=== PATIENT | female | born 1960 | race Caucasian/White ===

== ENCOUNTER 2023-09-07 11:25 | Outpatient (REF) | payer OTHER, SELFPAY ==
[2023-09-07 14:41] LABS: MANUAL DIFF FLAG NO
[2023-09-07 14:55] LABS: Basophils Absolute Auto 0.1 X10*3/uL (0.0-0.2); Basophils Percent Auto 0.6 % (0-2); Hematocrit 41.9 % (37.0-47.0); Hemoglobin 13.4 g/dl (12.0-16.0); Imm Gran Abs Auto 0.05 X10*3/uL (0.00-0.03); Imm Gran Pct Auto 0.6 % (0.0-0.4); Lymphocytes Absolute Auto 2.6 X10*3/uL (1.2-4.9); Lymphocytes Percent Auto 28.6 % (20-40); Mean Corpuscular Hemoglobin 28.2 pg (27.0-33.0); Mean Corpuscular Volume 88.2 fL (80.0-98.0); Mean Platelet Volume 10.6 fL (9.4-12.3); Monocytes Absolute Auto 0.6 X10*3/uL (0.1-1.2); Monocytes Percent Auto 6.1 % (2-11); Neutrophils Absolute Auto 5.8 x10*3/uL (2.0-8.3); Neutrophils Percent Auto 64.1 % (45-73); Platelet Count 296 X10*3/uL (160-400); Red Blood Count 4.75 X10*6/uL (4.20-5.50); Red Cell Distribution Width 13.2 % (11.0-16.0)
[2023-09-07 15:43] LABS: Alanine Aminotransferase 23 U/L (0-31); Albumin Level 4.3 g/dL (3.5-5.0); Alkaline Phosphatase 104 U/L (39-117); Anion Gap 13 (12-20); Aspartate Amino Transferase 26 U/L (5-31); Bilirubin Total 0.3 mg/dL (0.0-1.0); Blood Urea Nitrogen 10 mg/dL (9-16); Calcium 9.8 mg/dL (8.4-10.2); Carbon Dioxide 25 mmol/L (22-29); Chloride 107 mmol/L (96-108); Cholesterol 191 mg/dL (<200); Estimated Glomerular Filt Rate > 60; Glucose Random 111 mg/dL (60-115); HDL Cholesterol 38 mg/dL (>40); LDL Cholesterol Calculated 85 mg/dL (<100); Sodium 140 mmol/L (135-145); Triglycerides 344 mg/dL (<150)
[2023-09-07 15:47] LABS: TSH reflex Free T4 1.62 uIU/mL (0.32-4.0)
== END 2023-09-07 11:26 | disposition home or self-care (01) ==
LOC: HO.CHCLDS 11:25
PROVIDERS: Visit Provider Family Medicine
DX: E66.9 Obesity, unspecified (principal); Z68.35 Body mass index [BMI] 35.0-35.9, adult
CPT/HCPCS: 36415; 80053; 80061; 84443; 85025

== ENCOUNTER 2024-12-08 11:53 | Outpatient (REF) | payer OTHER, SELFPAY ==
--- OUTSIDE RECORDS SUMMARY | 2024-12-08 12:23 | XMS_ITS | Encounter Summary ---
Author Organization [employer] Address [address] [facility] 7t [place] [address] Care Team Providers Care Picc Nurse Name Role Phone Rhona Huff MD Primary Care Provider [phone] Reason for Visit * Reason Comments Med Refill Encounter Details Date Type Department Care Team ([facility] st Contact Info) Description 05/23/2024 Refill [facility] CHC MED & PEDS [address] [place], [place] [phone] Rhona Huff MD [address] [place], [place] [id number] Social History Tobacco Use Types Packs/Day Years Used Date Smoking Tobacco: Former Cigarettes 1 41 Passive Smoke Exposure: Never Smokeless Tobacco: Never Alcohol Use Standard Drinks/Week Comments Not Currently 0 (1 standard drink = 0.6 oz pur e alcohol) Depression Answer Date Recorded Patient Health Questionnaire-9 Score 0 03/11/2024 Patient Health Questionnaire-9 Score 0 03/11/2024 Last PHQ-9: Questionnaire Data Not on file 1 Housing Stability Answer Date Recorded What is your housing situation today? I have tejinder moore 04/14/[address] you li ve. Do you have problems with any of the following? None of the above 04/14/2023 Food Insecurity Answer Date Recorded Within the past 12 months, y ou worried that your food would run out before you got money to buy more: Never True 04/14/2023 Within the past 12 months,th e food you bought just didn't last and you didn't have enough money to get more: Never True Transportation Answer Date Recorded In the past 12 months, has l ack of transportation kept you from medical appts, meetings, work or from getting things needed for daily living? No 04/14/2023 Utilities Answer Date Recorded In the past 12 months, has t he electric, gas, oil or water company threatened to shut off services in your home? No 04/14/2023 Depression Answer Date Recorded Patient Health Questionnaire-2 Score 0 03/11/2024 Comments Unknown Sex and Gender Information Value Date Recorded Sex Assigned at Female 03/31/2022 10:27 AM EDT Legal Sex Female 10:27 AM EDT Gender Identity Female 04/27/2023 9:16 AM EST Sexual Orientation Straight 04/27/2023 9: 16 AM EST documented as of this encounter Plan of Treatment Not on file documented as of this encounter Visit Diagnoses Not on filedocumented in this encounter Additional Health Concerns Assessment Noted Time PHQ-9 Depression Total Score: 0 03/11/20 24 11:28 AM EDT documented as of this encounter Care Teams Picc Nurse Relationship Specialty Start Date End Date Rhona Huff MD [address] [place] [address] PCP - General Family Medicine 04/27/23 Dr. Pagan Psychiatrist 09/29/23 documented as of this encounter
--- OUTSIDE RECORDS SUMMARY | 2024-12-08 12:23 | XMS_ITS | Clinical Summary ---
Author Organization [employer] [facility] ity Address [address] [place] [address] Care Team Providers Care Software Licensing Analyst Name Role Phone Unavailable Primary Care Provider Unavailabl e Social History Tobacco Use Types Packs/Day Years Used Date Smoking Tobacco: Never Assessed Comments Unknown Sex and Gender Information Value Date Recorded Sex Assigned at Not on file Legal Sex Female 7:33 PM EST Gender Identity Not on file Sexual Orientation Not on file Plan of Treatment Health Maintenance Due Date Last Done Comments Breast Cancer Screening 1960 DTaP,Tdap,and Td Vaccines (1 - Tdap) 1977 Pneumococcal Vaccine: 50+ Ye ars (1 of 1 - PCV) 01/27/2008 Zoster Vaccines (1 of 2) 01/27/2008 COVID-19 Vaccine ( - 2023-2 5 season) 2024 Influenza Vaccine (#1) 2025 RSV Immunization Adult Patie nts (1 - 1-dose 75+ series) 2033 HIB Vaccines Aged Out No longer eligi ble based on patient's age to complete this topic HPV Vaccines Aged Out No longer eligi ble based on patient's age to complete this topic Hepatitis A Vaccines Aged Out No long er eligible based on patient's age to complete this topic Hepatitis B Vaccines Aged Out No long er eligible based on patient's age to complete this topic IPV Vaccines Aged Out No longer eligi ble based on patient's age to complete this topic MMR Vaccines Aged Out No longer eligi ble based on patient's age to complete this topic Meningococcal ACWY Vaccine Aged Out N o longer eligible based on patient's age to complete this topic Meningococcal B Vaccine Aged Out No l onger eligible based on patient's age to complete this topic RSV Immunization Patients Un katherin 20 months Aged Out No longer eligible b ased on patient's age to complete this topic Varicella Vaccines Aged Out No longer eligible based on patient's age to complete this topic
[2024-12-08 15:47] LABS: MANUAL DIFF FLAG NO
[2024-12-08 16:25] LABS: Hematocrit 33.7 % (37.0-47.0); Hemoglobin 9.9 g/dl (12.0-16.0); Imm Gran Abs Auto 0.03 X10*3/uL (0.00-0.03); Imm Gran Pct Auto 0.4 % (0.0-0.4); Lymphocytes Absolute Auto 2.3 X10*3/uL (1.2-4.9); Mean Corpuscular HGB Conc 29.4 g/dl (31.0-35.0); Mean Corpuscular Hemoglobin 21.1 pg (27.0-33.0); Mean Corpuscular Volume 71.7 fL (80.0-98.0); NRBC Abs Auto 0.000 X10*3/uL (0.0-0.012); NRBC Pct Auto 0.0 /100WBC (0.0-0.2); Platelet Count 316 X10*3/uL (160-400); Red Blood Count 4.70 X10*6/uL (4.20-5.50); White Blood Count 8.3 X10*3/uL (4.8-10.8)
[2024-12-08 16:28] LABS: Alanine Aminotransferase 18 U/L (0-31); Albumin Level 4.6 g/dL (3.5-5.0); Alkaline Phosphatase 90 U/L (39-117); Anion Gap 13 (12-20); Aspartate Amino Transferase 24 U/L (5-31); Blood Urea Nitrogen 7 mg/dL (9-16); Calcium 9.5 mg/dL (8.4-10.2); Carbon Dioxide 25 mmol/L (22-29); Chloride 108 mmol/L (96-108); Cholesterol 130 mg/dL (<200); Estimated Glomerular Filt Rate > 60; HDL Cholesterol 47 mg/dL (>40); Potassium 4.0 mmol/L (3.3-5.1); Sodium 142 mmol/L (135-145); Total Protein 7.5 g/dL (6.5-8.0); Triglycerides 108 mg/dL (<150)
[2024-12-09 08:40] LABS: HIV Num 1 0.06 S/CO (0.00-0.99); ~HepC Num1 0.12 S/CO (0.00-0.79); ~Hepatitis C Antibody Nonreactive (Nonreactive)
== END 2024-12-08 11:54 | disposition home or self-care (01) ==
LOC: HO.CHCLDS 11:53
PROVIDERS: Visit Provider Family Medicine
DX: E66.811 Obesity, class 1 (principal); Z13.9 Encounter for screening, unspecified
CPT/HCPCS: 36415; 80053; 80061; 84443; 85025; 86803; 87389

== ENCOUNTER 2025-03-01 10:47 | Outpatient (REF) | payer OTHER, SELFPAY ==
--- OUTSIDE RECORDS SUMMARY | 2025-03-01 12:24 | XMS_ITS | Encounter Summary ---
Author Organization [employer] Address [address] [facility] 7t [place] [address] Care Team Providers Care Hog Handler Name Role Phone Rhona Huff MD Primary Care Provider [phone] Reason for Visit * Reason Comments Med Refill Encounter Details Date Type Department Care Team (Late st Contact Info) Description 02/24/2025 Refill [facility] MEDICINE [address] [place] [address] Tj Bello MD [address], [place] [phone] Mixed hyperlipidemia Social History Tobacco Use Types Packs/Day Years [...] Recorded Patient Health Questionnaire-2 Score 0 03/11/2024 Internet Access Answer Date Recorded Internet Access Q1 Yes 08/04/2024 Internet Access Q2 Not on file 08/04/2024 Comments Unknown Sex and Gender Information Value Date Recorded Sex Assigned at Female 03/31/2022 10:27 AM EDT Legal Sex Female 10:27 AM EDT Gender Identity Female 04/27/2023 9:16 AM EST Sexual Orientation Straight 04/27/2023 9: 16 AM EST documented as of this encounter Plan of Treatment Not on file documented as of this encounter Visit Diagnoses Diagnosis Mixed hyperlipidemia documented in this encounter Additional Health Concerns Assessment Noted Time PHQ-9 Depression Total Score: 0 03/11/20 24 11:28 AM EDT documented as of this encounter Care Teams Hog Handler Relationship Specialty Start Date End Date Rhona Huff MD [address] [place] [address] PCP - General Family Medicine 04/27/23 Dr. Pagan Psychiatrist 09/29/23 documented as of this encounter
--- OUTSIDE RECORDS SUMMARY | 2025-03-01 12:24 | XMS_ITS | Encounter Summary ---
Author Organization [employer] Address [address] [facility] 7t [place] [address] Care Team Providers Care Diamond Merchant Name Role Phone Rhona Huff MD Primary Care Provider [phone] Reason for Visit * Reason Onset Date Comments Durable Medical Equipment 06/27/2024 Encounter Details Date Type Department Care Team ([facility] st Contact Info) Description 06/27/2024 Telephone [facility] MEDICINE [address] [place] [address] Rhona Huff MD [address] [place], [place] [phone] Durable Medical Equipment Social History Tobacco Use Types Packs/Day Years [...] AM EST documented as of this encounter Miscellaneous Notes * Telephone Encounter - Annia Escalante LPN - 06/27/2024 3:12 PM EST Good afternoon , pt is requesting DME below however no documentation nor DX to support need. Pleaseschedule. Tc from pt daughter requesting a small shower chair and shower adzing and boring machine operator. Pt daughters contact: [phone] * Telephone Encounter - Ambrosio Cobb - 06/27/2024 3:03 PM EST Tc from pt daughter requesting a small shower chair and shower adzing and boring machine operator. Pt daughters contact: [phone] documented in this encounter Plan of Treatment Not on file documented as of this encounter Visit Diagnoses Not on filedocumented in this encounter Additional Health Concerns Assessment Noted Time PHQ-9 Depression Total Score: 0 03/11/20 24 11:28 AM EDT documented as of this encounter Care Teams Diamond Merchant Relationship Specialty Start Date End Date Rhona Huff MD [address] [place] [address] PCP - General Family Medicine 04/27/23 Dr. Pagan Psychiatrist 09/29/23 documented as of this encounter
--- OUTSIDE RECORDS SUMMARY | 2025-03-01 12:24 | XMS_ITS | Encounter Summary ---
Author Organization [employer] Address [address] [facility] [address] [place] [address] Care Team Providers Care Dynamicist Name Role Phone Rhona Huff MD Primary Care Provider [phone] Reason for Visit * Reason Onset Date Comments New Patient 01/30/2023 Encounter Details Date Type Department Care Team (Late st Contact Info) Description 01/30/[address] [facility] MEDICINE [address] [place], [place] [phone] Altaf Claudio MD [address] [place], [place] [phone] New Patient Social History Tobacco Use Types Packs/Day Years Used Date Smoking Tobacco: Never Assessed Comments Unknown Sex and Gender Information Value Date Recorded Sex Assigned at Female 03/31/2022 10:27 AM EDT Legal Sex Female 10:27 AM EDT Gender Identity Female 04/27/2023 9:16 AM EST Sexual Orientation Straight 04/27/2023 9: 16 AM EST documented as of this encounter Miscellaneous Notes * Telephone Encounter - Jean-Claude Aranda - 03/05/2023 4:07 PM EDT PAR Jean-Claude Benjamin called pt to Offer LIFE SKILLS COORDINATOR VOLUNTEER appt. Pt demographics and insurance information were verified. Pt states following medical conditions: Depression, Anxiety, and Arthritis. Pt reports taking medications: Yes ( will bring appt date) Pt given LIFE SKILLS COORDINATOR VOLUNTEER appt with Dr. Huff on 04/27/2023 @ 9:30 am .Pt will be sent appt reminder card and medical release form and agrees to complete and to return to medical records prior to LIFE SKILLS COORDINATOR VOLUNTEER appt. * Telephone Encounter - Jean-Claude Aranda - 01/30/2023 1:54 PM EDT Pt has been transfer over to wait list for LIFE SKILLS COORDINATOR VOLUNTEER. EFFECTIVE SINCE 01/30/2023 documented in this encounter Plan of Treatment Not on file documented as of this encounter Visit Diagnoses Not on filedocumented in this encounter Care Teams Dynamicist Relationship Specialty Start Date End Date Rhona Huff MD [address] [place] [address] PCP - General Family Medicine 04/27/23 Dr. Pagan Psychiatrist 09/29/23 documented as of this encounter
--- OUTSIDE RECORDS SUMMARY | 2025-03-01 12:24 | XMS_ITS | Encounter Summary ---
Author Organization [employer] Address [address] [facility] 7t [place] [address] Care Team Providers Care Conference Center Coordinator Name Role Phone Rhona Huff MD Primary Care Provider [phone] Reason for Visit * Reason Comments Med Refill Encounter Details Date Type Department Care Team ([facility] st Contact Info) Description 10/23/2023 Refill [facility] CHC MED & PEDS [address] [place], [place] [phone] Rhona Huff MD [address] [place], [place] [phone] Social History Tobacco Use Types Packs/Day Years Used Date Smoking Tobacco: Former Cigarettes 1 41 Passive Smoke Exposure: Never Smokeless Tobacco: Never Alcohol Use Standard Drinks/Week Comments Not Currently 0 (1 standard drink = 0.6 oz pur e alcohol) Depression Answer Date Recorded Patient Health Questionnaire-9 Score 5 04/27/2023 Patient Health Questionnaire-9 Score 5 04/27/2023 Last PHQ-9: Questionnaire Data Not on file 1 06/27/2022 Housing Stability Answer Date Recorded What is [...] Date Recorded Patient Health Questionnaire-2 Score 0 04/27/2023 Comments Unknown Sex and Gender Information Value [...] Assessment Noted Time PHQ-9 Depression Total Score: 5 04/27/20 23 9:46 AM EST documented as of this encounter Care Teams Conference Center Coordinator Relationship Specialty Start Date End Date Rhona Huff MD [address] [place] [address] PCP - General Family Medicine 04/27/23 Dr. Pagan Psychiatrist 09/29/23 documented as of this encounter
--- OUTSIDE RECORDS SUMMARY | 2025-03-01 12:24 | XMS_ITS | Encounter Summary ---
Author Organization [employer] Address [address] [facility] 7t [place] [address] Care Team Providers Care Statistical Assistant Name Role Phone Rhona Huff MD Primary Care Provider [phone] Encounter Details Date Type Department Care Team (Late st Contact Info) Description 09/29/2023 Orders Only [facility] [address] [place], [place] [phone] ProviderLizandro MD Social History Tobacco Use Types Packs/Day Years [...] t he electric, gas, oil or water [employer] threatened to shut off services in your [...] on file documented as of this encounter Procedures Procedure Name Priority Date/Time Associated Diagnosis Comments BONE DENSITY/DEXA (HIPS, PELVIS OR SPINE) Routine 07/13/2023 4:[address] LUNG SCREENING Routine 12/09/2022 4:09 PM EDT documented in this encounter Results * BONE DENSITY/DEXA (HIPS, PELVIS OR SPINE) (07/13/2023 4:14 PM EST) Anatomical Region Laterality Modality L-spine N/A Radiographic Mayda ging Historical Provider MD KAUFMAN DXA PROCEDURES Final Result * CT Lung Screening Low dose (12/09/2022 4:09 PM EDT) Anatomical Region Laterality Modality Lung Computed Tomogra phy Historical Provider MD KAUFMAN CT PROCEDURES Final R esult documented in this encounter Visit Diagnoses Not on filedocumented in this encounter Additional Health Concerns Assessment Noted Time PHQ-9 Depression Total Score: 5 04/27/20 23 9:46 AM EST documented as of this encounter Care Teams Statistical Assistant Relationship Specialty Start Date End Date Rhona Huff MD [address] [place] [address] PCP - General Family Medicine 04/27/23 Dr. Pagan Psychiatrist 09/29/23 documented as of this encounter
--- OUTSIDE RECORDS SUMMARY | 2025-03-01 12:24 | XMS_ITS | Encounter Summary ---
Author Organization [place] [facility] Address [address] [facility] 7t [place] [address] Care Team Providers Care Ops Analyst Name Role Phone Rhona Huff MD Primary Care Provider [phone] Reason for Visit * Reason Comments Med Refill Encounter Details Date Type Department Care Team ([facility] st Contact Info) Description 05/23/2024 Refill [facility] CHC MED & PEDS [address] [place], [place] [phone] Rhona Huff MD [address] [place], [place] [phone] Social History Tobacco Use Types Packs/Day Years [...] documented as of this encounter Care Teams Ops Analyst Relationship Specialty Start Date End Date Rhona Huff MD [address] [place] [address] PCP - General Family Medicine 04/27/23 Dr. Pagan Psychiatrist 09/29/23 documented as of this encounter
--- OUTSIDE RECORDS SUMMARY | 2025-03-01 12:24 | XMS_ITS | Clinical Summary ---
Author Organization [employer] [facility] ity Address [address] [place] [address] Care Team Providers Care Injection Wax Molder Name Role Phone Unavailable Primary Care Provider [...] 01/27/2008 Zoster Vaccines (1 of 2) 01/27/2008 Depression Screening 06/01/2024 COVID-19 Vaccine (1 - 2023-2 5 season) 2025 Influenza Vaccine (#1) 2025 RSV Immunization Adult [...]
--- OUTSIDE RECORDS SUMMARY | 2025-03-01 12:24 | XMS_ITS | Encounter Summary ---
Author Organization [employer] Address [address] [facility] 7t [place] [address] Care Team Providers Care Patient Care Technician Instructor Name Role Phone Rhona Huff MD Primary Care Provider [phone] Reason for Visit * Reason Comments Med Refill Encounter Details Date Type Department Care Team (Late st Contact Info) Description 02/24/[address] [facility] MEDICINE [address] [place] [address] Angela Cote MD [address] [place], [place] [phone] Social History Tobacco Use Types Packs/Day Years [...] documented as of this encounter Care Teams Patient Care Technician Instructor Relationship Specialty Start Date End Date Rhona Huff MD [address] [place] [address] PCP - General Family Medicine 04/27/23 Dr. Pagan Psychiatrist 09/29/23 documented as of this encounter
--- OUTSIDE RECORDS SUMMARY | 2025-03-01 12:24 | XMS_ITS | Encounter Summary ---
Author Organization [employer] Address [address] [facility] [address] [place] [address] Care Team Providers Care Bark Peeler Name Role Phone Rhona Huff MD Primary Care Provider [phone] Encounter Details Date Type Department Care Team ([facility] st Contact Info) Description 01/20/2025 Orders Only [facility] CHC MED & PEDS [address] [place], [place] [phone] ProviderLizandro MD Social History Tobacco Use Types [...] the past 12 months, has t he [employer], gas, oil or water company threatened to [...] Procedure Name Priority Date/Time Associated Diagnosis Comments HM MAMMOGRAPHY Routine 01/09/2025 3:42 PM EDT documented in this encounter Results * Hm Mammography (01/09/2025 3:42 PM EDT) Anatomical Region Laterality Modality Other Historical Provider HEALTH MAINTENANCE Final Result documented in this encounter Visit Diagnoses Not on filedocumented in this encounter Additional Health Concerns Assessment Noted Time PHQ-9 Depression Total Score: 0 03/11/20 24 11:28 AM EDT documented as of this encounter Care Teams Bark Peeler Relationship Specialty Start Date End Date Rhona Huff MD [address] [place] [address] PCP - General Family Medicine 04/27/23 Dr. Pagan Psychiatrist 09/29/23 documented as of this encounter
--- OUTSIDE RECORDS SUMMARY | 2025-03-01 12:24 | XMS_ITS | Encounter Summary ---
Author Organization [employer] Address [address] [facility] 7t [place] [address] Care Team Providers Care Tool Polishing Machine Operator Name Role Phone Rhona Huff MD Primary Care Provider Encounter Details Date Type Department Care Team (Late st Contact Info) Description 10/01/2023 Orders Only [facility] [address] [place], [place] [phone] ProviderLizandro MD Social History Tobacco Use Types [...] t he electric, gas, oil or water [employer] threatened to shut off services in your [...] Procedure Name Priority Date/Time Associated Diagnosis Comments MRI BRAIN WO CONTRAST Routine 04/02/2023 2:18 PM EDT documented in this encounter Results * MRI BRAIN WO CONTRAST (04/02/2023 2:18 PM EDT) Anatomical Region Laterality Modality Magnetic Resonan ce us Historical Provider MD [facility] MRI PROCEDURES Final Result documented in this encounter Visit Diagnoses Not on filedocumented in this encounter Additional Health Concerns Assessment Noted Time PHQ-9 Depression Total Score: 5 04/27/20 23 9:46 AM EST documented as of this encounter Care Teams Tool Polishing Machine Operator Relationship Specialty Start Date End Date Rhona Huff MD [address] [place] [address] PCP - General Family Medicine 04/27/23 Dr. Pagan Psychiatrist 09/29/23 documented as of this encounter
--- OUTSIDE RECORDS SUMMARY | 2025-03-01 12:24 | XMS_ITS | Clinical Summary ---
Author Organization [employer] Address [address] [facility] [address] [place] [address] Care Team Providers Care Steam Presser Name Role Phone Rhona Huff MD Primary Care Provider [phone] Allergies Active Allergy Reactions Criticality Noted Date Comments Aspirin 04/27/2023 Codeine 04/27/2023 Medications GaviLyte-G 236 g solution DRINK 1 GLASS EVERY 15-30 MINUTES UNTIL FINISHED 08/31/19 24 Active Acetaminophen Extra Strength 500 MG tablet TAKE 1 TABLET (500 MG) BY MOUTH EVERY 4 (FOUR) HOURS IF NEEDED FOR MODERATE PAIN. 60 tablet 12/11/19 24 Active D3-1000 25 MCG (1000 UT) capsule TAKE 1 CAPSULE BY MOUTH EVERY MORNING 120 capsule 2 09/28/19 25 Active Calcium Citrate + D3 Maximum tablet TAKE 1 TABLET BY MOUTH TWICE A DAY 180 tablet 1 10/27/19 25 Active Vascepa 1 g capsuleIndication s:Mixed hyperlipidemia TAKE 1 CAPSULE BY MOUTH EVERY DAY 90 capsule 1 11/02/19 25 Active docusate sodium (Colace) 100 MG capsule TAKE 1 CAPSULE (100 MG) BY MOUTH 2 TIMES DAILY. 180 capsule 1 11/02/19 25 Active hydrOXYzine HCl (Atarax) 25 MG tablet TAKE 1 TABLET (25 MG) BY MOUTH EVERY 8 (EIGHT) HOURS IF NEEDED FOR ITCHING. 270 tablet 12/10/19 25 Active Eliquis 5 MG tablet Take 1 tablet by mouth 2 times daily. 11/26/19 25 Active ferrous gluconate (Fergon) 324 (38 Fe) MG tablet Take 1 tablet (324 mg) by mouth with breakfast. 90 tablet 1 12/10/19 25 Active atorvastatin (Lipitor) 40 MG tabletIndications :Mixed hyperlipidemia TAKE 1 TABLET BY MOUTH EVERY DAY 90 tablet 1 02/25/20 25 Active sertraline (Zoloft) 50 MG tablet TAKE 1 TABLET BY MOUTH EVERY DAY 90 tablet 1 02/25/20 25 Active atorvastatin (Lipitor) 40 MG tabletIndications :Mixed hyperlipidemia TAKE 1 TABLET BY MOUTH EVERY DAY 90 tablet 1 06/27/19 25 025 Discontinued sertraline (Zoloft) 50 MG tablet TAKE 1 TABLET BY MOUTH EVERY DAY 90 tablet 1 09/07/19 025 Discontinued(R eorder (will not trigger notification to Pharmacy)) Active Problems Problem Noted Date Diagnosed Date Anemia 01/19/2025 Atypical chest pain 12/08/2024 Mixed hyperlipidemia 09/29/2023 Assessment & Plan (09/29/2023 1:29 PM EDT): The 10-year ASCVD risk score (Kurt ROYAL, et al., 2019) is: 6.5% Values used to calculate the score: Age: 63 years Sex: Female Is Non- : No Diabetic: No Tobacco smoker: No Systolic Blood Pressure: 130 mmHg Is BP treated: No HDL Cholesterol: 38 mg/dL Total Cholesterol: 191 mg/dL Increase statin to 40 mg and added vascepa. Rpt lipid in 3 mo Uterine leiomyoma 04/27/2023 04/27/2023 Current smoker 04/27/2023 04/27/2023 Tobacco user 04/27/2023 04/27/2023 Thyroid nodule 04/27/2023 04/27/2023 Overview (04/27/2023): FNA benign. Pulmonary embolism 04/27/2023 04/27/2023 Overview (04/27/2023): Bilateral, segmental and subsegmental Assessment & Plan (09/29/2023 1:39 PM EDT): Will need to review records to assess duration of treatment. PE was in October 2021. Postmenopausal bleeding 04/27/2023 04/27/20 Hepatic steatosis 04/27/2023 04/27/2023 Encounter for tubal ligation 04/27/2023 Class 1 obesity 04/27/2023 04/27/2023 Assessment & Plan (12/20/2024 10:41 AM EDT): Discussed calorie deficit, recommended reduction of 20-30% of maintenance calories; boring machine set up operator jig referral offered. Recommended to decrease soda and sugary beverage consumption. Recommended at least 20 g per meal of protein to assist with satiety. Recommended at least 150 min/week of moderate intensity exercise. Assessment & Plan (04/27/2023 10:05 AM EST): Discussed calorie deficit, recommended reduction of 20-30% of maintenance calories; boring machine set up operator jig referral offered. Recommended to decrease soda and sugary beverage consumption. Recommended at least 20 g per meal of protein to assist with satiety. Recommended at least 150 min/week of moderate intensity exercise. Normal colonoscopy 11/29/2008 04/27/2023 Overview (04/27/2023): CRC Screening colonoscopy normal. will need repeat colonoscopy in 2019. History of repair of inguinal hernia 10/18/2008 04/27/2023 Encounters Date Type Department Care Team Description 02/24/2025 Refill [facility] [address] [place], [place] [phone] Angela Cote MD 02/24/2025 Refill [facility] [address] [place] [address] Tj Bello MD Mixed hyperlipidemia 01/20/2025 Orders Only [facility] [address] [place] [address] Lizandro Galicia MD 01/19/2025 1:30 PM EDT Office Visit [facility] [address] [place] [address] Rhona Huff MD Anemia, unspecified type (Primary Dx); Osteopenia, unspecified location 01/19/2025 Travel 01/11/2025 Telephone [facility] [address] [place] [address] Rhona Huff MD chart prep 12/13/2024 Telephone [facility] [address] [place], [place] [phone] Rhona Huff MD NOTES 12/09/2024 Results Follow-Up [facility] [address] [place] [address] Rhona Huff MD CBC auto differential, Comprehensive Metabolic Panel, Lipid Panel, Standard, TSH W/Reflex to FT4 12/08/2024 11:30 AM EDT Office Visit [facility] [address] [place] [address] Rhona Huff MD Atypical chest pain (Primary Dx); Encounter for screening for lung cancer; Class 1 obesity; Encounter for health-related screening 12/08/2024 Travel 12/08/2024 Refill [facility] [address] [place], [place] [phone] Angela Cote MD 11/30/2024 Patient Outreach [facility] [address] [place] [address] Rhona Huff MD Pre-visit Planning ([facility] screening completed on 08/04/24) from Last 3 Months Immunizations Immunization Administration Dates Next Due Hep A / Hep B 08/22/2010 Influenza, High Dose Seasona l, Preservative Free 03/11/2024 Influenza, IIV3, injectable 03/31/2022,1 ,03/16/2018,2015,04/11/2015,06/08/2013,01/22/2012,1 06/21/2010 Influenza, seasonal, injecta ble, preservative free 03/31/2022,03/18/2019 Pfizer Covid-19 Vaccine 12+ 09/29/2023 Pfizer Covid-19 Vaccine 12+ Bivalent 03/31/2022 Pneumococcal Conjugate PCV 13 02/12/2015 Pneumococcal Conjugate PCV 20 04/27/2023 Tdap 02/12/2015 Social History Tobacco Use Types Packs/Day Years Used Date Smoking Tobacco: Former Cigarettes 1 41 Passive Smoke Exposure: Never Smokeless Tobacco: Never Tobacco Cessation:Counseling Given: Not Answered Alcohol Use Standard Drinks/Week Comments Not Currently [...] Orientation Straight 04/27/2023 9: 16 AM EST Last Filed Vital Signs Vital Sign Reading Time Taken Comments Blood Pressure 126/79 01/19/2025 1:11 PM EDT Pulse 82 01/19/2025 1:11 PM EDT Temperature 36.9 C (98.4 F) 01/19/2025 1:11 PM EDT Respiratory Rate 20 01/19/2025 1:11 PM EDT Oxygen Saturation 99% 01/19/2025 1:11 PM EDT Inhaled Oxygen Concentration - - Weight 72.6 kg (160 lb) 01/19/2025 1:11 PM EDT Height 144.8 cm (4' 9 ) 01/19/2025 1:11 PM EDT Body Mass Index 34.62 01/19/2025 1:11 PM EDT Plan of Treatment Health Maintenance Due Date Last Done Comments Bone Density Scan 1958 CT Colonography 1958 FIT DNA/Cologuard 1958 FIT 1958 FOBT 1960 Sigmoidoscopy 1960 Zoster Vaccines (1 of 2) 01/27/2008 Hepatitis A Vaccines (2 of 3 - Hep A Twinrix risk 3-dose series) 09/19/2010 08/22/2010 Hepatitis B Vaccines (2 of 3 - Hep B Twinrix risk 3-dose series) 09/19/2010 08/22/2010 RSV Patients and Patients Aged 60 years or older (1 - Risk 60-74 years 1-dose series) 2018 Lung Cancer Screening 12/10/2023 12/09/2022 COVID-19 Vaccine ( season) 2025 09/29/2023, 03/31/2022, 08/30/2020 Influenza Vaccine (#1) 2025 , 03/31/2022, 03/31/2022, Additional history exists DTaP/Tdap/Td Vaccines (2 - Td or Tdap) 02/12/2025 02/12/2015 Alcohol/Substance Use Screening 03/11/2025 03/11/2024 Depression Screening 03/11/2025 03/11/2024, 03/11/20 24 SDOH Screening 08/04/2025 08/04/2024 Mammogram 01/09/2026 01/09/2025, 01/05/2023 Tobacco Screening 01/19/2026 01/19/2025 HPV/Cotest 03/12/2027 03/12/2022 Pap Smear 03/12/2027 03/12/2022 Colonoscopy 09/04/2027 09/03/2022 Colorectal Cancer Screening 09/04/2027 Pneumococcal Vaccine: 50+ Years Completed 04/27/2023, 02/12/2015 Hepatitis C Screening Completed 12/08/2024 HIB Vaccines Aged Out No longer eligi [...] patient's age to complete this topic Meningococcal Vaccine Aged Out No ernestina capo eligible based on patient's age to complete this topic RSV under 20 months Aged Out No longe r eligible based on patient's age to complete this topic Rotavirus Vaccines Aged Out No longer eligible based on patient's age to complete this topic Procedures Procedure Name Priority Date/Time Associated Diagnosis Comments POCT HEMOGLOBIN Routine 01/19/2025 2:21 PM EDT Anemia, unspecified type HM MAMMOGRAPHY Routine 01/09/2025 3:42 PM EDT TSH W/REFLEX TO FT4 Routine 12/08/2024 1 1:54 AM EDT Class 1 obesity HEPATITIS C AB W/REFL TO HCV RNA, QN, PCR Routine 12/08/2024 11:54 AM EDT Encounter for health-related screening HIV 1/2 ANTIGEN/ANTIBODY, FOURTH GENERATION W/RFL Routine 12/08/2024 11:54 AM EDT Encounter for health-related screening LIPID PANEL, STANDARD Routine 12/08/2024 11:54 AM EDT Class 1 obesity COMPREHENSIVE METABOLIC PANEL Routine 12/08/2024 11:54 AM EDT Class 1 obesity CBC WITH AUTO DIFFERENTIAL Routine 12/08/2024 11:54 AM EDT Class [address] LOW DOSE SCREENING Routine 12/09/2022 COLONOSCOPY Routine 09/03/2022 THINPREP IMAGING PAP AND HPV DNA Routine 03/12/2022 12:00 AM EDT from Last 3 Months or Most Recently Relevant to Health Maintenance Results * (ABNORMAL) POCT Hemoglobin (01/19/2025 2:21 PM EDT) Hemoglobin 10.9(A) 12.0 - 15.0 QC Media Lot # [id number] Lot# Expiration Date [id number] Blood 01/19/2025 2:21 PM EDT Rhona Huff MD POINT OF CARE TEST ENTER/EDIT ORDERABLES Final Result * Hm Mammography (01/09/2025 3:42 PM EDT) Anatomical Region Laterality Modality Other Historical Provider HEALTH MAINTENANCE Final Result * TSH W/Reflex to FT4 (12/08/2024 11:54 AM EDT) Pathologist [facility] TSH reflex Free T4 1.18 0.32 - 4.0 uIU/mL [facility] Blood Venous blood specimen / Unknown 12/08/2024 11:54 AM EDT 12/08/2024 3:46 PM EDT Rhona Huff MD LAB BLOOD ORDERABLES Final Re sult Performing Organization Address City/State/[facility] Co de Phone Number [facility] [address] [place] [phone] * (ABNORMAL) CBC auto differential (12/08/2024 11:54 AM EDT) White Blood Count 8.3 4.8 - 10.8 X10*3/uL [facility] Red Blood Count 4.70 4.20 - 5.50 X10*6/uL [facility] Hemoglobin 9.9(L) 12.0 - 16.0 g/dl [facility] Hematocrit 33.7(L) 37.0 - 47.0 % [facility] Mean Corpuscular Volume 71.7(L) 80.0 - 98.0 fL [facility] Mean Corpuscular Hemoglobin 21.1(L) 27.0 - 33.0 pg [facility] Mean Corpuscular HGB Conc 29.4(L) 31.0 - 35.0 g/dl [facility] Red Cell Distribution Width 18.4(H) 11.0 - 16.0 % [facility] Platelet Count 316 160 - 400 X10*3/uL [facility] Mean Platelet Volume 10.4 9.4 - 12.3 fL [facility] Neutrophils Percent Auto 64.8 45 - 73 % [facility] Imm Gran Pct Auto 0.4 0.0 - 0.4 % [facility] Lymphocytes Percent Auto 27.5 20 - 40 % [facility] Monocytes Percent Auto 6.0 2 - 11 % [facility] Eosinophils Percent Auto 0.8 0 - 4 % [facility] Basophils Percent Auto 0.5 0 - 2 % [facility] NRBC Pct Auto 0.0 0.0 - 0.2 /100WBC [facility] Neutrophils Absolute Auto 5.4 2.0 - 8.3 x10*3/uL [facility] Imm Gran Abs Auto 0.03 0.00 - 0.03 X10*3/uL [facility] Lymphocytes Absolute Auto 2.3 1.2 - 4.9 X10*3/uL [facility] Monocytes Absolute Auto 0.5 0.1 - 1.2 X10*3/uL [facility] Eosinophils Absolute Auto 0.1 0.0 - 0.4 X10*3/uL [facility] Basophils Absolute Auto 0.0 0.0 - 0.2 X10*3/uL [facility] NRBC Abs Auto 0.000 0.0 - 0.012 X10*3/uL [facility] Blood Venous blood specimen / Unknown 12/08/2024 11:54 AM EDT 12/08/2024 3:44 PM EDT us Rhona Huff MD LAB BLOOD ORDERABLES Final Re sult [facility] [address] [place] [phone] * Hepatitis C Antibody with Reflex to HCV, RNA, Quantitative, Real-Time PCR (12/08/2024 11:54 AM EDT) Hepatitis C Antibody Nonreactive Nonreactive [facility] Comment:Antibodies to HCV no t detected; does not exclude early acuteHCV infection. Blood Venous blood specimen / Unknown 12/08/2024 11:54 AM EDT 12/08/2024 3:46 PM EDT Rhona Huff MD LAB BLOOD ORDERABLES Final Re sult Performing Organization Address City/[facility]/ZIP Co de Phone Number [facility] [address] [place] [phone] [phone] * HIV-1/2 Antigen and Antibodies, Fourth Generation, with Reflexes (12/08/2024 11:54 AM EDT) HIV AB/AG Nonreactive Nonreactive [facility] Comment:HIV-1 p24 Ag and/or HIV-1/HIV-2 Ab not detected.A test result that is nonreactive does not exclude thepossibility of exposure to or infection with HIV-1 and/orHIV-2. Nonreactive results in this assay for individualswith prior exposure to HIV-1 and/or HIV-2 may be due toantigen and antibody levels that are below the limit ofdetection of this assay.The [employer] HIV Ag/Ab Combo assay result andsupplemental assay results should be interpreted inconjunction with the patient's clinical presentation,history and other laboratory results. If the results areinconsistent with clinical evidence, additional testing issuggested to confirm the result. Blood Venous blood specimen / Unknown 12/08/2024 11:54 AM EDT 12/08/2024 3:46 PM EDT us Rhona Huff MD LAB BLOOD ORDERABLES Final Re sult Performing Organization Address City/[facility]/ZIP Co de Phone Number [facility] [address] [place] [phone] * Lipid Panel, Standard (12/08/2024 11:54 AM EDT) Triglycerides 108 <150 mg/dL [facility] Comment:Desirable Triglyceri de: less than 150 mg/dLBorderline High Triglyceride 150-199 mg/dLHigh Triglyceride: 200-499 mg/dLVery High Triglyceride: greater than or equal to 5OO mg/dL Cholesterol 130 <200 mg/dL [facility] Comment:Desirable Cholestero l: less than 200 mg/dLBorderline High Cholesterol: 200-239 mg/dLHigh Cholesterol: greater than 239 mg/dL LDL Cholesterol Calculated 62 <100 mg/dL [facility] Comment:Desirable LDL: less than 100 mg/dLNear Optimal/Above Optimal LDL: 110- 129 mg/dLBorderline High LDL: 130-159 mg/dLHigh LDL: 160-189 mg/dLVery High LDL: greater than or equal to 190 mg/dL HDL Cholesterol 47 >40 mg/dL [facility] Comment:Desirable HDL: great er than 40 mg/dL Note: This HDL assay may give artificially low results in patients with liver disease. Blood Venous blood specimen / Unknown 12/08/2024 11:54 AM EDT 12/08/2024 3:46 PM EDT us Rhona Huff MD LAB BLOOD ORDERABLES Final Re sult [facility] [address] [place] [phone] * (ABNORMAL) Comprehensive Metabolic Panel (12/08/2024 11:54 AM EDT) Sodium 142 135 - 145 mmol/L [facility] Potassium 4.0 3.3 - 5.1 mmol/L [facility] Chloride 108 96 - 108 mmol/L [facility] Carbon Dioxide 25 22 - 29 mmol/L [facility] Anion Gap 13 12 - 20 [facility] Urea Nitrogen (BUN) 7(L) 9 - 16 mg/dL [facility] Creatinine, Serum 0.73 0.5 - 1.4 mg/dL [facility] Estimated Glomerular Filt Rate >60 [facility] Comment:Chronic Kidney Disea se: Estimated GFR < 60 mL/min/[id number] Kidney Disease: Estimated GFR < 15 mL/min/1.73m2 Glucose 87 60 - 115 mg/dL [facility] Calcium 9.5 8.4 - 10.2 mg/dL [facility] Bilirubin, Total 0.5 0.0 - 1.0 mg/dL [facility] Aspartate Amino Transferase 24 5 - 31 U/L [facility] Alanine Aminotransferase 18 0 - 31 U/L [facility] Total Protein 7.5 6.5 - 8.0 g/dL [facility] Albumin Level 4.6 3.5 - 5.0 g/dL [facility] Alkaline Phosphatase 90 39 - 117 U/L [facility] Blood Venous blood specimen / Unknown 12/08/2024 11:54 AM EDT 12/08/2024 3:46 PM EDT Rhona Huff MD LAB BLOOD ORDERABLES Final Re sult Performing Organization Address City/[facility] Co de Phone Number [facility] [address] [place] [address] [phone] * CT Low Dose Screening (12/09/2022) Anatomical Region Laterality Modality Chest Computed Tomogra phy Narrative 12/09/[address] Dru Goodwin: negative results. No nodules noted. Continue annual screening with LDCT in 12 months Historical Provider IMG CT PROCEDURES Final R esult * Colonoscopy (09/03/2022) Anatomical Region Laterality Modality Endoscopy Narrative 09/03/2022 2 sessile polyps, < 10 mm, rpt colonoscopy 5 yrs, pend path Historical Provider ENDOSCOPY PROCEDURE ORDER SILVINA Final Result * Thinprep Pap And HPV DNA (03/12/2022 12:00 AM EDT) Historical Provider LAB PATHOLOGY ORDERABLES Final Result Performing Organization Address City/[facility]/ZIP Co de Phone Number [facility] [address] [place] [phone] from Last 3 Months or Most Recently Relevant to Health Maintenance Insurance [facility] RETIREMENT OPTIONS (HMO D-SNP) SHIVANI CLARK [id number] Care Teams Steam Presser Relationship Specialty Start Date End Date Rhona Huff MD [address] [place] [phone] PCP - General Family Medicine 04/27/23 Dr. Pagan Psychiatrist 09/29/23
--- OUTSIDE RECORDS SUMMARY | 2025-03-01 12:25 | XMS_ITS | Encounter Summary ---
Author Organization [employer] Address [address] [facility] [address] [place] [address] Care Team Providers Care Shellfish Manager Name Role Phone Rhona Huff MD Primary Care Provider [phone] Reason for Visit * Reason Comments Med Refill Encounter Details Date Type Department Care Team (Late st Contact Info) Description 01/22/2024 Refill [facility] [address] [place] [address] Rhona Huff MD [address] [place], [place] [phone] Social History Tobacco Use Types Packs/Day Years [...] documented as of this encounter Care Teams Shellfish Manager Relationship Specialty Start Date End Date Rhona Huff MD [address] [place] [phone] PCP - General Family Medicine 04/27/23 Dr. Pagan Psychiatrist 09/29/23 documented as of this encounter
[2025-03-01 14:04] LABS: MANUAL DIFF FLAG NO
[2025-03-01 14:07] LABS: Hematocrit 35.8 % (37.0-47.0); Hemoglobin 11.4 g/dl (12.0-16.0); Imm Gran Abs Auto 0.03 X10*3/uL (0.00-0.03); Imm Gran Pct Auto 0.4 % (0.0-0.4); Lymphocytes Absolute Auto 2.1 X10*3/uL (1.2-4.9); Mean Corpuscular HGB Conc 31.8 g/dl (31.0-35.0); Mean Corpuscular Hemoglobin 23.5 pg (27.0-33.0); Mean Corpuscular Volume 73.8 fL (80.0-98.0); NRBC Abs Auto 0.000 X10*3/uL (0.0-0.012); NRBC Pct Auto 0.0 /100WBC (0.0-0.2); Platelet Count 314 X10*3/uL (160-400); Red Blood Count 4.85 X10*6/uL (4.20-5.50); White Blood Count 7.6 X10*3/uL (4.8-10.8)
[2025-03-01 14:31] LABS: Iron 54 mcg/dL (30-160); Percent Iron Saturation 14 % (15-50); Total Iron Binding Capacity 375 mcg/dL (228-428); Unsaturated Iron Binding 321 ug/dL
[2025-03-01 14:54] LABS: Ferritin 15 ng/mL (10-250)
== END 2025-03-01 10:48 | disposition home or self-care (01) ==
LOC: HO.CHCLDS 10:47
PROVIDERS: Visit Provider Family Medicine
DX: D64.9 Anemia, unspecified (principal)
CPT/HCPCS: 36415; 82728; 83540; 85025